=== PATIENT | female | born 1960 | race Caucasian/White ===

== ENCOUNTER → 2016-11-10 | Outpatient (CLI) | payer MEDICARE, MEDICAID ==
[~2016-11-10] MED LIST: EXCEDRIN PO; IBUP200C PO
== END | disposition home or self-care (01) ==
LOC: CFH 13:01
PROVIDERS: ATTEND Internal Medicine
DX: Z12.31 Encounter for screening mammogram for malignant neoplasm of breast (principal)
CPT/HCPCS: G0202

== ENCOUNTER 2017-09-15 18:52 | Emergency (ER) | payer MEDICARE, MEDICAID ==
[~2017-09-15] VITALS: Ht 157.5 cm; Wt 73.8 kg
[~2017-09-15 18:52] MED LIST changes: -IBUP200C PO; +IBUP200C5 PO
[2017-09-15 18:54] VITALS: BP 118/72
== END 2017-09-15 19:44 | disposition home or self-care (01) ==
LOC: ED 19:35
DX: R07.89 Other chest pain (principal); Z87.891 Personal history of nicotine dependence; Z90.49 Acquired absence of other specified parts of digestive tract; X50.9XXA Other and unspecified overexertion or strenuous movements or postures, initial encounter; Y93.89 Activity, other specified; Y99.8 Other external cause status; Y92.89 Other specified places as the place of occurrence of the external cause
CPT/HCPCS: 99284

== ENCOUNTER → 2017-12-24 | Outpatient (CLI) | payer MEDICARE, MEDICAID ==
[~2017-12-24] MED LIST changes: +IBUP-1623 PO; -IBUP200C5 PO
== END | disposition home or self-care (01) ==
LOC: CFH 15:00
PROVIDERS: ATTEND Internal Medicine
DX: M47.22 Other spondylosis with radiculopathy, cervical region (principal); M48.02 Spinal stenosis, cervical region; Z88.0 Allergy status to penicillin; Z91.011 Allergy to milk products
CPT/HCPCS: 72141

== ENCOUNTER → 2018-07-13 | Outpatient (CLI) | payer MEDICARE, MEDICAID | END | disposition home or self-care (01) | LOC: CFH 10:27 | PROVIDERS: ATTEND Internal Medicine | DX: N89.8 Other specified noninflammatory disorders of vagina (principal); K43.9 Ventral hernia without obstruction or gangrene | CPT/HCPCS: 76705; 76830 ==

== ENCOUNTER → 2018-07-16 | Outpatient (CLI) | payer MEDICARE, MEDICAID | END | disposition home or self-care (01) | LOC: RAD 15:48 | PROVIDERS: ATTEND Registered Nurse Registered Nurse First Assistant | DX: M47.812 Spondylosis without myelopathy or radiculopathy, cervical region (principal); M48.02 Spinal stenosis, cervical region | CPT/HCPCS: 72050 ==

== ENCOUNTER → 2018-08-10 | Outpatient (CLI) | payer MEDICARE, MEDICAID | END | disposition home or self-care (01) | LOC: CFH 10:30 | DX: Z12.31 Encounter for screening mammogram for malignant neoplasm of breast (principal) | CPT/HCPCS: 77067 ==

== ENCOUNTER 2019-12-10 10:39 | Inpatient (IN) | payer MEDICARE, MEDICAID ==
[~2019-12-10] VITALS: Ht 160 cm; Wt 77.1 kg
[2019-12-10] MEDS ORDERED: ACETAMINOPHEN 500 MG TABLET ONE (11:13)
[2019-12-10] MEDS ORDERED: ONDANSETRON 2MG/ML, 2ML ONE (11:13)
[2019-12-10] MEDS ORDERED: SODIUM CHLORIDE FLUSH 10ML SYR IVF ONE (11:30)
[2019-12-10] MEDS ORDERED: ACETAMINOPHEN 325 MG TABLET PO ONE (11:30)
[2019-12-10] MEDS ORDERED: METOPROLOL 1 MG/ML, 5ML IVPush ONE (11:30)
[2019-12-10] MEDS ORDERED: SODIUM CHLORIDE 0.9% 1,000ML IVBOLUS ONE (11:30)
[2019-12-10 11:47] LABS: ALANINE AMINOTRANSFERASE 34 U/L (12-78); ALBUMIN 2.7 g/dL (3.4-5.0); ANION GAP 10 mmol/L (5-15); CALCIUM 9.1 mg/dL (8.5-10.1); CHLORIDE 102 mmol/L (98-107); CREATININE 0.71 mg/dL (0.55-1.02)
[2019-12-10 11:51] LABS: BASOPHILS # (AUTO) 0.03 x10^3/uL (0-0.1); BASOPHILS % (AUTO) 0 % (0-1); EOSINOPHILS # (AUTO) 0.01 x10^3/uL (0-0.4); EOSINOPHILS % (AUTO) 0 % (1-7); LYMPHOCYTES # (AUTO) 0.87 x10^3/uL (1-3.4); LYMPHOCYTES % (AUTO) 8 % (22-44); MD NO; MEAN CORPUSCULAR HEMOGLOBIN 27.7 pg (27.0-34.8); MEAN CORPUSCULAR HGB CONC 32.5 g/dL (32.4-35.8); MEAN PLATELET VOLUME 7.2 fL (7.4-10.4); MONOCYTES # (AUTO) 0.83 x10^3/uL (0.2-0.8); MONOCYTES % (AUTO) 7 % (2-9); NEUTROPHILS # (AUTO) 9.58 x10^3/uL (1.8-6.8); NEUTROPHILS % (AUTO) 85 % (42-75); PLATELET COUNT 498 x10^3/uL (130-400); RED BLOOD COUNT 4.31 x10^6/uL (3.82-5.3); RED CELL DISTRIBUTION WIDTH 11.7 % (9.6-15.2)
[2019-12-10 11:57] LABS: ALKALINE PHOSPHATASE 189 U/L (45-117); BILIRUBIN,TOTAL 0.8 mg/dL (0.2-1.0); FREE T4 (FREE THYROXINE) 4.83 ng/dL (0.76-1.46); TOTAL PROTEIN 7.4 g/dL (6.4-8.2)
[2019-12-10] MEDS ORDERED: POTASSIUM CHLORIDE 40 MEQ in SODIUM CHLORIDE 0.9% 500 ML IV ONE ×2 (12:00→14:00)
[2019-12-10] MEDS ORDERED: ONDANSETRON 2MG/ML, 2ML IVPush ONE (12:00)
[2019-12-10] MEDS ORDERED: METOPROLOL 1 MG/ML, 5ML ONE (12:07)
--- NOTE | 2019-12-10 12:11 | NUR ---
LOPRESSOR FOR HYPERTHYROID, AWARE OF HR AND BP. ORDERED KCL FROM PHARM. PT REPORTS NAUSEA IMPROVED. PLACED ON 2 LNC FOR DESATS TO 88%.
--- NOTE | 2019-12-10 12:19 | NUR ---
DRU IN ROOM EKG DONE PT TBADM AWARE AND AGREES.
[2019-12-10] MEDS ORDERED: LORazepam 2 MG/ML, 1ML IVPush ONE (12:30)
[2019-12-10] MEDS ORDERED: HYDROCORTISONE 100 MG INJ. IVPush ONE (12:30)
[2019-12-10] MEDS ORDERED: PROPYLTHIOURACIL 50 MG TABLET PO ONE (12:30)
[2019-12-10] MEDS ORDERED: HYDROCORTISONE 100 MG INJ. ONE (13:16)
[2019-12-10] MEDS ORDERED: POLYETHYLENE GLYCOL 17 GM PACKET PO PRN (13:30)
[2019-12-10] MEDS ORDERED: DOCUSATE 100 MG CAPSULE PO PRN (13:30)
[2019-12-10] MEDS ORDERED: ONDANSETRON 2MG/ML, 2ML IVPush PRN (13:30)
[2019-12-10] MEDS ORDERED: ONDANSETRON ODT 4 MG PO PRN (13:30)
[2019-12-10 13:52] LABS: MICROSCOPIC NOT IND
[2019-12-10 13:58] VITALS: BP 101/63
[2019-12-10] MEDS: ENOXAPARIN 40 MG/0.4 ML SQ SCH (14:47)
[2019-12-10] MEDS: ATENOLOL 50 MG TABLET PO SCH ×2 (14:48→21:30)
[2019-12-10 14:51] VITALS: BP 101/63
[2019-12-10] MEDS ORDERED: METO-282 PO (16:14)
[2019-12-10] MEDS ORDERED: METH5TAB6 PO (16:15)
[2019-12-10 16:17] VITALS: BP 102/63
[2019-12-10] MEDS: CHOLESTYRAMINE LIGHT 4GM PACKET PO SCH (16:21)
[2019-12-10] MEDS: NS + 40MEQ KCL 1,000 ML IV SCH (16:25)
[2019-12-10 19:57] VITALS: BP 110/68
[2019-12-10] MEDS: ACETAMINOPHEN 325 MG TABLET PO PRN (21:30)
[2019-12-11 01:12] VITALS: BP 101/70
[2019-12-11] MEDS: NS + 40MEQ KCL 1,000 ML IV SCH ×2 (02:30→13:44)
[2019-12-11 04:58] LABS: CHLORIDE 111 mmol/L (98-107)
[2019-12-11 05:01] LABS: BASOPHILS # (AUTO) 0.03 x10^3/uL (0-0.1); BASOPHILS % (AUTO) 1 % (0-1); EOSINOPHILS # (AUTO) 0.09 x10^3/uL (0-0.4); EOSINOPHILS % (AUTO) 1 % (1-7); LYMPHOCYTES # (AUTO) 1.77 x10^3/uL (1-3.4); LYMPHOCYTES % (AUTO) 27 % (22-44); MD NO; MEAN CORPUSCULAR HEMOGLOBIN 28.4 pg (27.0-34.8); MEAN CORPUSCULAR HGB CONC 33.3 g/dL (32.4-35.8); MEAN PLATELET VOLUME 7.6 fL (7.4-10.4); MONOCYTES # (AUTO) 0.52 x10^3/uL (0.2-0.8); MONOCYTES % (AUTO) 8 % (2-9); NEUTROPHILS # (AUTO) 4.11 x10^3/uL (1.8-6.8); NEUTROPHILS % (AUTO) 63 % (42-75); PLATELET COUNT 370 x10^3/uL (130-400); RED BLOOD COUNT 3.54 x10^6/uL (3.82-5.3); RED CELL DISTRIBUTION WIDTH 11.8 % (9.6-15.2)
[2019-12-11 05:10] LABS: ALANINE AMINOTRANSFERASE 27 U/L (12-78); ALBUMIN 2.2 g/dL (3.4-5.0); ALKALINE PHOSPHATASE 141 U/L (45-117); ANION GAP 8 mmol/L (5-15); BILIRUBIN,TOTAL 0.3 mg/dL (0.2-1.0); CALCIUM 9.1 mg/dL (8.5-10.1); CREATININE 0.48 mg/dL (0.55-1.02); TOTAL PROTEIN 6.2 g/dL (6.4-8.2)
[2019-12-11 05:30] VITALS: BP 111/56
[2019-12-11] MEDS: ATENOLOL 50 MG TABLET PO SCH (05:32)
[2019-12-11] MEDS: CHOLESTYRAMINE LIGHT 4GM PACKET PO SCH ×3 (07:00→16:28)
[2019-12-11 08:16] VITALS: BP 97/63
[2019-12-11] MEDS ORDERED: ATENOLOL 50 MG TABLET PO SCH (09:00)
[2019-12-11 09:25] VITALS: BP 95/58
[2019-12-11] MEDS: ACETAMINOPHEN 325 MG TABLET PO PRN ×2 (09:33→18:46)
[2019-12-11 12:01] VITALS: BP 107/53
[2019-12-11] MEDS: ENOXAPARIN 40 MG/0.4 ML SQ SCH (13:45)
[2019-12-11] MEDS: PINK BISMUTH 87.33 MG/5 ML ORAL SUSP PO PRN (16:29)
[2019-12-11 19:03] VITALS: BP 103/67
[2019-12-11] MEDS: ATENOLOL 25 MG TABLET PO SCH ×2 (21:00→21:16)
[2019-12-12 01:44] VITALS: BP 148/91
[2019-12-12] MEDS: ACETAMINOPHEN 325 MG TABLET PO PRN ×2 (01:49→20:36)
[2019-12-12 04:40] LABS: BASOPHILS # (AUTO) 0.12 x10^3/uL (0-0.1); BASOPHILS % (AUTO) 2 % (0-1); EOSINOPHILS # (AUTO) 0.08 x10^3/uL (0-0.4); EOSINOPHILS % (AUTO) 1 % (1-7); LYMPHOCYTES # (AUTO) 1.45 x10^3/uL (1-3.4); LYMPHOCYTES % (AUTO) 21 % (22-44); MD NO; MEAN CORPUSCULAR HGB CONC 32.4 g/dL (32.4-35.8); MEAN PLATELET VOLUME 7.4 fL (7.4-10.4); MONOCYTES # (AUTO) 0.45 x10^3/uL (0.2-0.8); MONOCYTES % (AUTO) 7 % (2-9); NEUTROPHILS % (AUTO) 70 % (42-75); PLATELET COUNT 392 x10^3/uL (130-400); RED BLOOD COUNT 3.65 x10^6/uL (3.82-5.3); RED CELL DISTRIBUTION WIDTH 11.7 % (9.6-15.2)
[2019-12-12 04:47] LABS: ANION GAP 7 mmol/L (5-15); CALCIUM 8.5 mg/dL (8.5-10.1); CHLORIDE 110 mmol/L (98-107); CREATININE 0.58 mg/dL (0.55-1.02)
[2019-12-12] MEDS: CHOLESTYRAMINE LIGHT 4GM PACKET PO SCH (07:00)
[2019-12-12] MEDS ORDERED: HYDROCORTISONE 100 MG INJ. IVPush ONE (08:00)
[2019-12-12 08:17] VITALS: BP 127/73
[2019-12-12] MEDS: ATENOLOL 25 MG TABLET PO SCH ×2 (08:19→20:36)
[2019-12-12 13:11] VITALS: BP 136/74
[2019-12-12] MEDS: PINK BISMUTH 87.33 MG/5 ML ORAL SUSP PO PRN ×2 (14:26→20:50)
[2019-12-12] MEDS: ENOXAPARIN 40 MG/0.4 ML SQ SCH (14:26)
[2019-12-12 18:38] VITALS: BP 128/76
[2019-12-13 00:50] VITALS: BP 133/79
[2019-12-13] MEDS: ATENOLOL 25 MG TABLET PO SCH (07:32)
[2019-12-13 07:36] VITALS: BP 131/71
[2019-12-13] MEDS ORDERED: METH10TA6 PO (08:12)
[2019-12-13] MEDS ORDERED: ATEN25TA PO (08:12)
== END 2019-12-13 09:47 | disposition home or self-care (01) | DRG 643 ==
LOC: ED 12:29 → 4WST 12:47 → DCLOUNGE 12-13 09:21
PROVIDERS: ADMIT Internal Medicine; ATTEND Family Medicine
DX: E05.90 Thyrotoxicosis, unspecified without thyrotoxic crisis or storm (principal); J96.01 Acute respiratory failure with hypoxia; R65.10 Systemic inflammatory response syndrome (SIRS) of non-infectious origin without acute organ dysfunction; E87.6 Hypokalemia; D72.829 Elevated white blood cell count, unspecified; G89.29 Other chronic pain; I10 Essential (primary) hypertension; Z20.828 Contact with and (suspected) exposure to other viral communicable diseases; E04.1 Nontoxic single thyroid nodule; M54.9 Dorsalgia, unspecified
CPT/HCPCS: 36415; 71045; 80048; 80053; 81003; 83605; 83735; 84145; 84436; 84439; 84443; 84481; 85025; 87040; 93005; 96365; 96375; G0378; J1650; J2405; J3480; J1720; J7030; J7040

== ENCOUNTER → 2020-03-30 | Outpatient (CLI) | payer MEDICARE, MEDICAID ==
[~2020-03-30] MED LIST changes: +ATEN25TA PO; +METH10TA6 PO; +METH5TAB6 PO; +METO-282 PO
== END | disposition home or self-care (01) ==
LOC: RAD 12:22
PROVIDERS: ATTEND Internal Medicine
DX: E04.1 Nontoxic single thyroid nodule (principal); R22.1 Localized swelling, mass and lump, neck
CPT/HCPCS: 76536

== ENCOUNTER 2020-04-08 16:28 | Emergency (ER) | payer MEDICARE, MEDICAID ==
[~2020-04-08] VITALS: Ht 157.5 cm; Wt 74.0 kg
--- NOTE | 2020-04-08 17:20 | NUR ---
assumed care of pt. pt here for pain s/p a fall at home while cleaning her bathtub. pt reports that she was cleaning and stepped onto the side of the tub and fell into it. pt reports that she hit her L ribs and her L foot. pt is in no resp distress. no bruising oted to L ribcage or back. pt has swelling and bruising to L foot, CMS intact. pt foot elevated and ice pack applied. pillow given for splinting for comfort and positioning for comfort. SO at bedside
[2020-04-08] MEDS ORDERED: KETOROLAC 30 MG/1 ML IM ONE (18:00)
[2020-04-08] MEDS ORDERED: DIAZEPAM 5 MG TABLET PO ONE (18:00)
--- NOTE | 2020-04-08 18:10 | NUR ---
pt to RAD
[2020-04-08] MEDS ORDERED: OMNIPAQUE 350 MG/ML, 100ML BOTTLE ONE (18:50)
--- NOTE | 2020-04-08 18:55 | NUR ---
lab at bedside to draw report to Shae Remy and Emilie REMY
[2020-04-08] MEDS ORDERED: ONDANSETRON 2MG/ML, 2ML IVPush ONE (19:00)
[2020-04-08] MEDS ORDERED: MORPHINE SULFATE 4 MG/ML, 1ML IVPush ONE (19:00)
--- NOTE | 2020-04-08 19:00 | NUR ---
report recevied from indio fischer
[2020-04-08 19:13] LABS: BASOPHILS % (AUTO) 1 % (0-1); EOSINOPHILS % (AUTO) 1 % (1-7); LYMPHOCYTES % (AUTO) 20 % (22-44); MEAN CORPUSCULAR HEMOGLOBIN 30.1 pg (27.0-34.8); MEAN CORPUSCULAR HGB CONC 34.6 g/dL (32.4-35.8); MEAN PLATELET VOLUME 7.3 fL (7.4-10.4); MONOCYTES % (AUTO) 5 % (2-9); NEUTROPHILS % (AUTO) 73 % (42-75); PLATELET COUNT 286 x10^3/uL (130-400); RED BLOOD COUNT 4.78 x10^6/uL (3.82-5.3); RED CELL DISTRIBUTION WIDTH 13.8 % (9.6-15.2)
[2020-04-08 19:18] LABS: MD NO
[2020-04-08 19:21] LABS: ANION GAP 10 mmol/L (5-15); CALCIUM 9.8 mg/dL (8.5-10.1); CHLORIDE 107 mmol/L (98-107); CREATININE 0.85 mg/dL (0.55-1.02)
[2020-04-08] MEDS ORDERED: MORPHINE SULFATE 4 MG/ML, 1ML ONE (19:34)
[2020-04-08] MEDS ORDERED: ONDANSETRON 2MG/ML, 2ML ONE (19:34)
--- NOTE | 2020-04-08 20:00 | NUR ---
pt medicated for pain per emar. friend at bedside
--- NOTE | 2020-04-08 20:01 | NUR ---
pt to ct
--- NOTE | 2020-04-08 21:00 | NUR ---
Sekou abreu in [facility] - 04/08/20 at [id number] by MAXIMILIANO constantin harp
--- NOTE | 2020-04-08 21:00 | NUR ---
PT AMBULATORY TO RESTROOM WITH STEADY GAIT.
[2020-04-08 21:24] VITALS: BP 121/51
== END 2020-04-08 21:32 | disposition home or self-care (01) ==
LOC: ED 18:25
DX: S20.212A Contusion of left front wall of thorax, initial encounter (principal); S90.32XA Contusion of left foot, initial encounter; S30.1XXA Contusion of abdominal wall, initial encounter; G89.11 Acute pain due to trauma; I10 Essential (primary) hypertension; Z90.49 Acquired absence of other specified parts of digestive tract; Z87.891 Personal history of nicotine dependence; W01.0XXA Fall on same level from slipping, tripping and stumbling without subsequent striking against object, initial encounter; Y93.89 Activity, other specified; Y92.098 Other place in other non-institutional residence as the place of occurrence of the external cause; Y99.8 Other external cause status
CPT/HCPCS: 36415; 71101; 73630; 74177; 80048; 85025; 96374; 96375; 99285; J2270; J2405; Q9967

== ENCOUNTER → 2020-10-08 | Outpatient (CLI) | payer MEDICARE, MEDICAID | END | disposition home or self-care (01) | LOC: RAD 10:37 | PROVIDERS: ATTEND Physician Assistant Medical | DX: E04.2 Nontoxic multinodular goiter (principal); R00.2 Palpitations; R63.5 Abnormal weight gain; E07.9 Disorder of thyroid, unspecified | CPT/HCPCS: 76536 ==

== ENCOUNTER 2021-02-09 19:04 | Emergency (ER) | payer MEDICARE, MEDICAID, OTHER ==
[~2021-02-09] VITALS: Ht 157.5 cm; Wt 80.9 kg
[2021-02-09 19:18] VITALS: BP 129/91
== END 2021-02-09 21:50 | disposition home or self-care (01) ==
LOC: ED 21:03
DX: S16.1XXA Strain of muscle, fascia and tendon at neck level, initial encounter (principal); S46.911A Strain of unspecified muscle, fascia and tendon at shoulder and upper arm level, right arm, initial encounter; S40.011A Contusion of right shoulder, initial encounter; M19.011 Primary osteoarthritis, right shoulder; I10 Essential (primary) hypertension; Z86.39 Personal history of other endocrine, nutritional and metabolic disease; V49.49XA Driver injured in collision with other motor vehicles in traffic accident, initial encounter; Y93.89 Activity, other specified; Y92.410 Unspecified street and highway as the place of occurrence of the external cause; Y99.8 Other external cause status
CPT/HCPCS: 72110; 72125; 99284